=== PATIENT | female | born 1960 | race African-American/Black ===

== ENCOUNTER 2016-11-24 16:54 | Emergency (ER) | payer MEDICARE, OTHER ==
[~2016-11-24] VITALS: Ht 157.5 cm; Wt 91.0 kg
[2016-11-24 17:15] VITALS: BP 169/101
[2016-11-24] MEDS ORDERED: HYDROCHLOROTHIAZIDE 12.5MG CAPSULE PO SCH (17:45)
== END 2016-11-24 18:41 | disposition home or self-care (01) ==
LOC: ER 17:58
DX: I10 Essential (primary) hypertension (principal); E66.9 Obesity, unspecified; Z88.2 Allergy status to sulfonamides; Z88.1 Allergy status to other antibiotic agents
CPT/HCPCS: 99283

== ENCOUNTER 2019-01-02 02:43 | Emergency (ER) | payer MEDICARE, OTHER ==
[~2019-01-02] VITALS: Ht 170.2 cm; Wt 85.0 kg
[2019-01-02] MEDS ORDERED: ONDANSETRON HCL 4MG/2ML INJ IV STA (03:23)
[2019-01-02] MEDS ORDERED: FENTANYL CITRATE/PF 50MCG/ML 2ML VIAL IV ONE (03:30)
[2019-01-02] MEDS ORDERED: BACITRACIN 15GM TUBE TOP ONE (03:30)
[2019-01-02 06:30] VITALS: BP 150/87
== END 2019-01-02 06:42 | disposition home or self-care (01) ==
LOC: ER 02:43
DX: T21.15XA Burn of first degree of buttock, initial encounter (principal); T31.0 Burns involving less than 10% of body surface; E78.00 Pure hypercholesterolemia, unspecified; I10 Essential (primary) hypertension; Z86.19 Personal history of other infectious and parasitic diseases; Z88.2 Allergy status to sulfonamides; X12.XXXA Contact with other hot fluids, initial encounter; Y93.89 Activity, other specified; Y92.89 Other specified places as the place of occurrence of the external cause; Y99.8 Other external cause status
CPT/HCPCS: 16000; 96374; 96375; 99284; J2405; J3010

== ENCOUNTER 2023-05-29 14:01 | Inpatient (IN) | payer MEDICARE, MEDICAID ==
[~2023-05-29] VITALS: Ht 172.7 cm; Wt 114.8 kg
[2023-05-29] MEDS ORDERED: MORPHINE SULFATE 4 MG/ML CPJ (NOT FOR IM USE) IV STA (14:07)
[2023-05-29] MEDS ORDERED: ONDANSETRON HCL 4MG/2ML INJ IV STA (14:07)
[2023-05-29] MEDS ORDERED: SODIUM CHLORIDE 0.9% 1,000 ML IV ONE (14:15)
[2023-05-29 15:36] LABS: HEMATOCRIT. 34.7 % (36.0-48.0); HEMOGLOBIN. 11.3 g/dL (12.0-16.0); MEAN CORPUSCULAR HEMOGLOBIN 32.1 pg (28.0-32.0); MEAN CORPUSCULAR HGB CONC 32.7 g/dL (31.0-37.0); MEAN CORPUSCULAR VOLUME 98.4 fL (81.0-99.0); MEAN PLATELET VOLUME 7.2 fl (7.4-10.4); PLATELET 353 x1000/uL (130-400); RED BLOOD CELL COUNT 3.53 mill/uL (4.2-5.4); WHITE BLOOD COUNT 7.3 x1000/uL (4.5-11.0)
[2023-05-29 15:37] LABS: DIFFERENTIAL COMMENT 1
[2023-05-29 15:43] LABS: D-DIMER 3.33 mg/L FEU (<0.50); INR 1.1; PROTHROMBIN TIME 11.6 sec (9.6-11.0)
[2023-05-29 15:58] LABS: ALANINE AMINOTRANSFERASE 26 IU/L (10-49); ASPARTATE AMINOTRANSFERASE 48 IU/L (<34); BILIRUBIN TOTAL 0.7 mg/dL (0.1-1.0); CALCIUM 9.6 mg/dL (8.7-10.4); CARBON DIOXIDE 28 mEq/L (21-32); CHLORIDE 100 mEq/L (98-107); CREATININE 0.5 mg/dL (0.6-1.0); GLUCOSE 144 mg/dL (70-105); POTASSIUM 3.7 mEq/L (3.5-5.1); PROTEIN TOTAL 9.6 g/dL (6.0-8.3); SODIUM 133 mEq/L (136-145)
[2023-05-29 16:07] LABS: TROPONIN I HIGH SENSITIVITY < 4 ng/L (3.0-34); UREA NITROGEN BLOOD < 5 mg/dL (9-23)
[2023-05-29 17:22] LABS: ANISOCYTOSIS 1+; PLATELET ESTIMATE NORMAL
[2023-05-29] MEDS ORDERED: KETOROLAC 30MG/ML VIAL IV ONE (18:15)
[2023-05-29 19:43] LABS: CLARITY URINE CLEAR (CLEAR); COLOR URINE YELLOW (YELLOW); GLUCOSE URINE NEGATIVE (NEGATIVE); KETONES URINE 1+ (NEGATIVE); LEUKOCYTE ESTERASE URINE NEGATIVE (NEGATIVE); NITRITE URINE NEGATIVE (NEGATIVE); OCCULT BLOOD URINE NEGATIVE (NEGATIVE); PROTEIN URINE TRACE (NEGATIVE); SPECIFIC GRAVITY URINE 1.018 (1.005-1.030)
[2023-05-29 20:31] LABS: BACTERIA URINE NONE SEEN; RBC URINE 0-2 /hpf (0-2); SQUAMOUS EPITHELIAL CELL URINE FEW /lpf (RARE/1+); WBC URINE 0-2 /hpf (0-2)
[2023-05-29] MEDS ORDERED: HYDROMORPHONE HCL/PF 2MG/ML CPJ IV ONE (21:00)
[2023-05-29] MEDS ORDERED: MORPHINE SULFATE 4 MG/ML CPJ (NOT FOR IM USE) IV NR (22:00)
[2023-05-29] MEDS ORDERED: ONDANSETRON HCL 4MG/2ML INJ IV NR (22:00)
[2023-05-29] MEDS ORDERED: ENOXAPARIN 120MG/0.8ML SYR SUBCUT ONE (22:00)
[2023-05-30] MEDS ORDERED: ACETAMINOPHEN 325MG TABLET PO PRN ×2 (00:15)
[2023-05-30] MEDS ORDERED: CLONIDINE 0.1MG TABLET PO PRN (00:15)
[2023-05-30] MEDS ORDERED: DIPHENHYDRAMINE 50MG/ML VIAL IV PRN (00:15)
[2023-05-30] MEDS ORDERED: KETOROLAC 30MG/ML VIAL IV PRN (00:45)
[2023-05-30] MEDS ORDERED: NALOXONE HCL 0.4MG/ML VIAL IV PRN (00:45)
[2023-05-30] MEDS ORDERED: HYDROMORPHONE HCL/PF 2MG/ML CPJ IM PRN (01:15)
[2023-05-30] MEDS: ENOXAPARIN 120MG/0.8ML SYR SUBCUT SCH ×2 (03:53→16:09)
[2023-05-30] MEDS: DEXT 5%/0.45% NACL 1000ML 1,000 ML IV SCH ×2 (04:22→21:12)
[2023-05-30 11:10] VITALS: BP 163/83; PULSE 87; RESP 18; TEMP 97.2
[2023-05-30] MEDS: HYDROCODONE/ACETAMINOPHEN 10/325MG TABLET PO PRN ×3 (11:33→17:09)
[2023-05-30] MEDS: HYDROMORPHONE HCL/PF 2MG/ML CPJ IV PRN ×2 (11:54→23:03)
[2023-05-30] MEDS: ONDANSETRON HCL 4MG/2ML INJ IV PRN (11:58)
[2023-05-30 12:28] VITALS: BP 163/83; PULSE 87; RESP 18; TEMP 97.2
[2023-05-30 16:00] VITALS: BP 139/80; PULSE 80; RESP 18; TEMP 96.7
[2023-05-30 16:59] LABS: HEPATITIS B SURFACE ANTIGEN NEGATIVE
[2023-05-30 17:02] LABS: HEPATITIS C VIR.AB > 11.00 INDEXVAL (0.00-0.80)
[2023-05-30 18:42] LABS: HEPATITIS B SURFACE ANTIGEN NEGATIVE; HEPATITIS C VIR.AB > 11.00 INDEXVAL (0.00-0.80)
[2023-05-30 20:20] VITALS: BP 128/74; PULSE 75; RESP 20; TEMP 98.6
[2023-05-31] VITALS: BP 121/75; PULSE 78; RESP 18; TEMP 99.7
[2023-05-31] MEDS: ENOXAPARIN 120MG/0.8ML SYR SUBCUT SCH ×2 (01:51→13:00)
[2023-05-31 04:00] VITALS: BP 147/93; PULSE 77; RESP 20; TEMP 99
[2023-05-31] MEDS: HYDROCODONE/ACETAMINOPHEN 10/325MG TABLET PO PRN ×3 (04:34→20:38)
[2023-05-31 08:03] VITALS: BP 133/78; PULSE 80; RESP 20; TEMP 97.3
[2023-05-31] MEDS: OMEPRAZOLE 20MG CAPSULE EXTENDED RELEASE PO SCH ×2 (08:37→20:29)
[2023-05-31] MEDS: HYDROMORPHONE HCL/PF 2MG/ML CPJ IV PRN ×2 (08:43→16:59)
[2023-05-31 12:00] VITALS: BP 124/75; PULSE 77; RESP 18; TEMP 99
[2023-05-31 16:00] VITALS: BP 133/86; PULSE 75; RESP 20; TEMP 97.7; TEMP 97.8
[2023-05-31] MEDS: DEXT 5%/0.45% NACL 1000ML 1,000 ML IV SCH (17:01)
[2023-05-31 20:20] VITALS: BP 151/91; PULSE 79; RESP 18; TEMP 99.1
[2023-05-31] MEDS ORDERED: OXYCODONE HCL 10MG TABLET SR 12HR PO NR (21:30)
[2023-06-01] VITALS: BP 138/81; PULSE 74; RESP 20; TEMP 98.2
[2023-06-01] MEDS: ENOXAPARIN 120MG/0.8ML SYR SUBCUT SCH ×2 (00:04→12:44)
[2023-06-01] MEDS: HYDROMORPHONE HCL/PF 2MG/ML CPJ IV PRN (03:11)
[2023-06-01 04:00] VITALS: BP 146/90; PULSE 87; RESP 18; TEMP 97.7
[2023-06-01 05:44] LABS: HEMATOCRIT. 32.4 % (36.0-48.0); HEMOGLOBIN. 10.5 g/dL (12.0-16.0); MEAN CORPUSCULAR HEMOGLOBIN 32.5 pg (28.0-32.0); MEAN CORPUSCULAR HGB CONC 32.6 g/dL (31.0-37.0); MEAN CORPUSCULAR VOLUME 99.8 fL (81.0-99.0); MEAN PLATELET VOLUME 8.2 fl (7.4-10.4); PLATELET 399 x1000/uL (130-400); RED BLOOD CELL COUNT 3.24 mill/uL (4.2-5.4); RED CELL DISTRIBUTION WIDTH 17.3 % (11.6-14.6); WHITE BLOOD COUNT 6.5 x1000/uL (4.5-11.0)
[2023-06-01 06:04] LABS: DIFFERENTIAL COMMENT 1
[2023-06-01 06:29] LABS: ALANINE AMINOTRANSFERASE 22 IU/L (10-49); ALBUMIN 3.6 g/dL (3.2-4.8); ASPARTATE AMINOTRANSFERASE 42 IU/L (<34); BILIRUBIN DIRECT 0.2 mg/dL (<=3.0); BILIRUBIN TOTAL 0.4 mg/dL (0.1-1.0); CALCIUM 9.3 mg/dL (8.7-10.4); CARBON DIOXIDE 29 mEq/L (21-32); CHLORIDE 103 mEq/L (98-107); CREATININE 0.5 mg/dL (0.6-1.0); GLUCOSE 120 mg/dL (70-105); POTASSIUM 3.5 mEq/L (3.5-5.1); PROTEIN TOTAL 8.8 g/dL (6.0-8.3); SODIUM 139 mEq/L (136-145); UREA NITROGEN BLOOD 6 mg/dL (9-23)
[2023-06-01 08:00] VITALS: BP 156/86; PULSE 81; RESP 18; TEMP 96.9
[2023-06-01] MEDS: OXYCODONE HCL 10MG TABLET SR 12HR PO SCH ×2 (08:41→21:55)
[2023-06-01] MEDS: OXYCODONE HCL 20MG TABLET SR 12HR PO SCH ×2 (08:41→21:55)
[2023-06-01] MEDS: OMEPRAZOLE 20MG CAPSULE EXTENDED RELEASE PO SCH ×2 (08:41→21:55)
[2023-06-01] MEDS ORDERED: OXYCODONE HCL 20MG TABLET SR 12HR PO SCH (09:00)
[2023-06-01 12:00] VITALS: BP 140/92; PULSE 20; RESP 20; TEMP 97
[2023-06-01] MEDS: ONDANSETRON HCL 4MG/2ML INJ IV PRN (12:45)
[2023-06-01 16:00] VITALS: BP 127/84; PULSE 76; RESP 18; TEMP 97.2
[2023-06-01] MEDS: DOCUSATE SODIUM 100MG CAPSULE PO SCH (17:30)
[2023-06-01 17:54] LABS: PLATELET ESTIMATE INCREASED
[2023-06-01 20:00] VITALS: BP 127/83; PULSE 77; RESP 16; TEMP 97.8
[2023-06-02] VITALS: BP 128/83; PULSE 83; RESP 19; TEMP 97.3
[2023-06-02] MEDS: HYDROMORPHONE HCL/PF 2MG/ML CPJ IV PRN ×3 (00:16→19:08)
[2023-06-02] MEDS: ENOXAPARIN 120MG/0.8ML SYR SUBCUT SCH ×2 (00:16→14:14)
[2023-06-02 04:00] VITALS: BP 141/81; PULSE 86; RESP 20; TEMP 97.5
[2023-06-02 06:58] LABS: BASOPHILS % 0.2 % (0.0-2.0); DIFFERENTIAL COMMENT 0; EOSINOPHILS % 0.7 % (0.0-5.0); HEMATOCRIT. 33.1 % (36.0-48.0); HEMOGLOBIN. 10.5 g/dL (12.0-16.0); LYMPHOCYTES % 30.7 % (20.0-50.0); MEAN CORPUSCULAR HEMOGLOBIN 31.8 pg (28.0-32.0); MEAN CORPUSCULAR HGB CONC 31.7 g/dL (31.0-37.0); MEAN CORPUSCULAR VOLUME 100.3 fL (81.0-99.0); MEAN PLATELET VOLUME 7.9 fl (7.4-10.4); MONOCYTES % 14.5 % (2.0-8.0); NEUTROPHILS % 53.9 % (40.0-76.0); PLATELET 395 x1000/uL (130-400); RED CELL DISTRIBUTION WIDTH 17.6 % (11.6-14.6); WHITE BLOOD COUNT 6.6 x1000/uL (4.5-11.0)
[2023-06-02 07:07] LABS: CALCIUM 9.5 mg/dL (8.7-10.4); CARBON DIOXIDE 25 mEq/L (21-32); CHLORIDE 103 mEq/L (98-107); CREATININE 0.6 mg/dL (0.6-1.0); GLUCOSE 123 mg/dL (70-105); POTASSIUM 3.5 mEq/L (3.5-5.1); SODIUM 138 mEq/L (136-145); UREA NITROGEN BLOOD 7 mg/dL (9-23)
[2023-06-02 07:49] VITALS: BP 136/86; PULSE 96; RESP 18; TEMP 97.2
[2023-06-02] MEDS: OMEPRAZOLE 20MG CAPSULE EXTENDED RELEASE PO SCH ×2 (08:23→21:15)
[2023-06-02] MEDS: DOCUSATE SODIUM 100MG CAPSULE PO SCH ×2 (08:23→17:00)
[2023-06-02] MEDS: OXYCODONE HCL 10MG TABLET SR 12HR PO SCH (08:23)
[2023-06-02] MEDS: OXYCODONE HCL 20MG TABLET SR 12HR PO SCH ×2 (08:25→21:15)
[2023-06-02 09:10] LABS: CA 19-9 20953 U/mL (0-35)
[2023-06-02] MEDS: ONDANSETRON HCL 4MG/2ML INJ IV PRN (11:13)
[2023-06-02 12:00] VITALS: BP 128/89; PULSE 85; RESP 20; TEMP 97.8
[2023-06-02 16:00] VITALS: BP 129/74; PULSE 89; RESP 18; TEMP 97.9
[2023-06-02 20:00] VITALS: BP 150/83; PULSE 80; RESP 19; TEMP 97.1
[2023-06-03] VITALS: BP 129/76; PULSE 79; RESP 20; TEMP 97.8
[2023-06-03] MEDS: ENOXAPARIN 120MG/0.8ML SYR SUBCUT SCH ×2 (00:24→13:24)
[2023-06-03] MEDS: HYDROMORPHONE HCL/PF 2MG/ML CPJ IV PRN ×3 (00:27→11:01)
[2023-06-03 04:00] VITALS: BP 124/62; PULSE 85; RESP 20; TEMP 97.8
[2023-06-03 07:12] LABS: BASOPHILS % 0.4 % (0.0-2.0); EOSINOPHILS % 0.8 % (0.0-5.0); HEMOGLOBIN. 10.6 g/dL (12.0-16.0); LYMPHOCYTES % 25.7 % (20.0-50.0); MEAN CORPUSCULAR HEMOGLOBIN 32.6 pg (28.0-32.0); MEAN CORPUSCULAR HGB CONC 33.2 g/dL (31.0-37.0); MEAN CORPUSCULAR VOLUME 98.1 fL (81.0-99.0); MEAN PLATELET VOLUME 8.3 fl (7.4-10.4); NEUTROPHILS % 60.1 % (40.0-76.0); PLATELET 395 x1000/uL (130-400); RED BLOOD CELL COUNT 3.26 mill/uL (4.2-5.4); RED CELL DISTRIBUTION WIDTH 17.2 % (11.6-14.6); WHITE BLOOD COUNT 7.3 x1000/uL (4.5-11.0)
[2023-06-03 08:00] VITALS: BP 138/90; PULSE 95; RESP 18; TEMP 97.7
[2023-06-03] MEDS: DOCUSATE SODIUM 100MG CAPSULE PO SCH (08:16)
[2023-06-03] MEDS: OMEPRAZOLE 20MG CAPSULE EXTENDED RELEASE PO SCH (08:17)
[2023-06-03] MEDS: OXYCODONE HCL 20MG TABLET SR 12HR PO SCH (08:17)
[2023-06-03] MEDS: ONDANSETRON HCL 4MG/2ML INJ IV PRN (08:24)
[2023-06-03 10:25] LABS: CALCIUM 8.9 mg/dL (8.7-10.4); CARBON DIOXIDE 24 mEq/L (21-32); CHLORIDE 105 mEq/L (98-107); CREATININE 0.6 mg/dL (0.6-1.0); GLUCOSE 116 mg/dL (70-105); SODIUM 140 mEq/L (136-145); UREA NITROGEN BLOOD 10 mg/dL (9-23)
[2023-06-03 11:01] VITALS: RESP 18
[2023-06-03 11:55] VITALS: BP 138/91; PULSE 95; TEMP 98.1; O2SAT 96
[2023-06-03 12:00] VITALS: BP 138/91; PULSE 95; TEMP 98.1
== END 2023-06-03 16:50 | disposition home or self-care (01) | DRG 176 ==
LOC: ER 14:01 → MICUSO 23:24 → EDBEDREQ 23:33 → EDBEDREQTM 23:33 → 7WST 05-30 11:02
PROVIDERS: ADMIT Internal Medicine; ATTEND Internal Medicine
DX: I26.99 Other pulmonary embolism without acute cor pulmonale (principal); C25.9 Malignant neoplasm of pancreas, unspecified; E11.9 Type 2 diabetes mellitus without complications; M47.812 Spondylosis without myelopathy or radiculopathy, cervical region; I10 Essential (primary) hypertension; J40 Bronchitis, not specified as acute or chronic; E78.00 Pure hypercholesterolemia, unspecified; K74.60 Unspecified cirrhosis of liver; R59.0 Localized enlarged lymph nodes; M51.37 Other intervertebral disc degeneration, lumbosacral region; K57.90 Diverticulosis of intestine, part unspecified, without perforation or abscess without bleeding; M51.36 Other intervertebral disc degeneration, lumbar region; Z88.2 Allergy status to sulfonamides; Z90.49 Acquired absence of other specified parts of digestive tract; Z79.4 Long term (current) use of insulin
CPT/HCPCS: 36415; 71045; 71275; 74174; 80048; 80053; 80076; 81003; 82107; 82962; 83880; 84484; 85025; 85379; 86301; 93005; 93970; 97165; 97530; 99285; J1170; J1650; J1885; J2405; J7030